=== PATIENT | male | born 1975 | race Caucasian/White ===

== ENCOUNTER 2019-01-22 21:23 | Emergency (ER) ==
[~2019-01-22] VITALS: Ht 193 cm; Wt 108.9 kg
--- NOTE | 2019-01-22 21:29 | NUR ---
BLOOD DRAWN AND GIVEN TO LAB
--- NOTE | 2019-01-22 21:30 | NUR ---
PT BIB GIRLFRIEND C/C SOB AND CP X1HR. ETOH WITHDRAWAL. DENIES NAUSEA. PT ADMITS TO FOREFULLY VOMITTING ICE SCRAPER. PT IS AOX4. NAD NOTED. RESP EVEN AND UNLABORED. PT ON MONITOR IN BED 10 WITH GIRLFRIEND AT BEDSIDE. WILL CONTINUE TO MONITOR.
--- NOTE | 2019-01-22 21:30 | NUR ---
TECH AT BEDSIDE FOR EKG
[2019-01-22 21:40] LABS: BASOPHILS # (AUTO) 0.1 /CMM (0.0-0.2); BASOPHILS % (AUTO) 1.5 % (0.0-2.0); EOSINOPHILS % (AUTO) 3.1 % (0.0-6.0); HEMATOCRIT 47 % (39-51); HEMOGLOBIN 16.6 g/dL (13.5-17.5); LYMPHOCYTES # (AUTO) 3.2 /CMM (0.8-4.8); LYMPHOCYTES % (AUTO) 45.4 % (20.0-44.0); MEAN CORPUSCULAR HGB CONC 35 g/dl (31.0-36.0); MEAN CORPUSCULAR VOLUME 106 fL (80-96); MONOCYTES # (AUTO) 0.7 /CMM (0.1-1.30); MONOCYTES % (AUTO) 9.5 % (2.0-12.0); NEUTROPHILS # (AUTO) 2.8 /CMM (1.8-8.9); NEUTROPHILS % (AUTO) 40.5 % (43.0-81.0); PLATELET COUNT (AUTO) 182 /CMM (150-450); RED BLOOD CELL COUNT(AUTO) 4.44 MIL/uL (4.5-6.0)
[2019-01-22] MEDS ORDERED: LORAZEPAM INJ 2 MG/ML VIAL ONE (21:45)
[2019-01-22] MEDS ORDERED: ASPIRIN 81 MG TAB.CHEW ONE (21:45)
[2019-01-22 21:49] LABS: CALCIUM, SERUM 9.2 mg/dL (8.5-10.1); CARBON DIOXIDE 23 mmol/L (21-32); CHLORIDE 101 mmol/L (98-107); CREATININE 0.9 mg/dL (0.6-1.3); GLUCOSE 103 mg/dL (74-106); POTASSIUM 3.6 mmol/L (3.5-5.1); SODIUM SERUM 140 mmol/L (136-145); UREA NITROGEN, BLOOD 12 mg/dL (7-18)
[2019-01-22 21:55] LABS: ALANINE AMINOTRANSFERASE 121 U/L (12-78); ALBUMIN 4.3 g/dL (3.4-5.0); ALKALINE PHOSPHATASE 97 U/L (46-116); ASPARTATE AMINOTRANSFERASE 104 U/L (15-37); BILIRUBIN,DIRECT 0.2 mg/dL (0.0-0.2); BILIRUBIN,TOTAL 0.9 mg/dL (0.2-1.0); TOTAL PROTEIN, SERUM 7.9 g/dL (6.4-8.2)
[2019-01-22] MEDS ORDERED: LORAZEPAM INJ 2 MG/ML VIAL IV ONE ×2 (22:00)
[2019-01-22] MEDS ORDERED: ASPIRIN 81 MG TAB.CHEW PO ONE (22:00)
[2019-01-22] MEDS ORDERED: IV NS 0.9% 1,000 ML BAG IV ONE (22:00)
[2019-01-22] MEDS ORDERED: ONDANSETRON HCL/PF 4 MG/2 ML VIAL IVP ONE (22:00)
[2019-01-22 22:03] LABS: BAND % (MANUAL) 9 % (0.0-5.0); EOSINOPHILS % (MANUAL) 2 % (0-4); LYMPHOCYTES % (MANUAL) 41 % (16-48); MONOCYTES % (MANUAL) 14 % (0-11.0); NEUTROPHILS % (MANUAL) 34 (42-76)
[2019-01-22 22:24] VITALS: BP 164/98
[2019-01-22] MEDS ORDERED: CHLORDIAZEPOXIDE HCL 25 MG CAPSULE PO ONE (23:00)
[2019-01-22] MEDS ORDERED: CHLORDIAZEPOXIDE HCL 25 MG CAPSULE ONE (23:18)
--- NOTE | 2019-01-22 23:32 | NUR ---
IV removed. Catheter intact and site benign. Pressure and 4x4 applied to site. No bleeding noted.Patient discharged to home in stable condition. Written and verbal after care instructions given. Patient verbalizes understanding of instruction. PT AMBULATORY WITH STEADY GAIT ACCOMPANIED BY FRIEND.
== END 2019-01-22 23:35 | disposition home or self-care (01) ==
LOC: ER 21:25
DX: F10.239 Alcohol dependence with withdrawal, unspecified (principal); R00.0 Tachycardia, unspecified; D75.89 Other specified diseases of blood and blood-forming organs; R74.0 Nonspecific elevation of levels of transaminase and lactic acid dehydrogenase [LDH]; R07.89 Other chest pain; R11.10 Vomiting, unspecified; E03.9 Hypothyroidism, unspecified; F17.200 Nicotine dependence, unspecified, uncomplicated; Y90.9 Presence of alcohol in blood, level not specified
CPT/HCPCS: 36415; 71045; 80048; 80076; 84443; 84484; 85025; 93005 ×2; 96361; 96374; 99284; J2060; J7030